=== PATIENT | female | born 1960 | race Caucasian/White ===

== ENCOUNTER 2021-12-30 20:51 | Inpatient (IN) | payer BC ==
[~2021-12-30] VITALS: Ht 170.2 cm; Wt 73.0 kg
[~2021-12-30 20:51] MED LIST: NOR10T PO
[2021-12-30] MEDS ORDERED: dilTIAZem HCL 50 MG/10 ML VIAL IV ONE (21:33)
[2021-12-30] MEDS ORDERED: dilTIAZem 125mg/125ml BAG KIT 125 ML IV ONE (21:45)
[2021-12-30] MEDS ORDERED: dilTIAZem 25 MG/5 ML VIAL IV ONE (21:45)
[2021-12-30 22:12] LABS: Basophils # (auto) 0 10 ^3/uL (0-0.2); Basophils % (auto) 0.4 % (0.0-2.0); Eosinophils # (auto) 0.1 10 ^3/uL (0-0.8); Eosinophils % (auto) 1.1 % (0.0-7.0); Hematocrit 48.9 % (36.0-46.0); Hemoglobin 16.4 g/dL (12.2-16.2); Lymphocytes # (auto) 2.7 10 ^3/uL (0.4-5.4); Lymphocytes % (auto) 30.3 % (10.0-50.0); Mean Corpuscular Hemoglobin 29.9 pg (28.0-32.0); Mean Corpuscular Hgb Conc. 33.5 g/dL (32.0-36.0); Mean Corpuscular Volume 89.4 fL (80.0-100.0); Monocytes # (auto) 0.8 10 ^3/uL (0-1.3); Monocytes % (auto) 9.4 % (0.0-12.0); Neutrophils # (auto) 5.2 10 ^3/uL (1.6-8.6); Neutrophils % (auto) 58.8 % (37.0-80.0); Nucleated Red Blood Cells % 0.1 %; Red Blood Cells 5.47 10^6/uL (4.0-5.20); Red Cell Distribution Width 12.8 % (11.8-14.3); White Blood Cell 8.9 10^3/uL (4.4-10.8)
[2021-12-30 22:37] LABS: Calcium 9.4 mg/dL (8.5-10.1); Potassium 3.4 mmol/L (3.5-5.1)
[2021-12-30 22:40] LABS: Bilirubin, Total 0.5 mg/dL (0.2-1.0); Total Protein 7.7 g/dL (6.4-8.2)
[2021-12-30 22:41] LABS: BUN/Creatinine Ratio 20.5
[2021-12-31] MEDS ORDERED: ENOXAPARIN SOD 80 MG/0.8ML SYRINGE SC ONE
[2021-12-31] MEDS ORDERED: MORPHINE SULFATE INJ 2 MG/ml SYRG IV PRN (01:00)
[2021-12-31] MEDS ORDERED: NITROGLYCERIN 0.4 MG SL TAB SL PRN (01:00)
[2021-12-31] MEDS ORDERED: ONDANSETRON HCL 4 MG/2 ML VIAL IV PRN (01:00)
[2021-12-31] MEDS: SODIUM CHLORIDE 0.9% 1,000 ML IV SCH ×2 (01:26→14:27)
[2021-12-31 02:16] LABS: Urine Bacteria NONE SEEN /hpf (None Seen); Urine Blood Negative /uL (Negative); Urine Mucus FEW (None Seen); Urine Specific Gravity 1.024 (1.001-1.035); Urine WBC 1 /hpf (0 - 5)
[2021-12-31] MEDS: POTASSIUM CHL 20MEQ/100ML 100 ML IV SCH ×2 (03:07→05:08)
[2021-12-31] MEDS: MORPHINE SULFATE INJ 2 MG/ml SYRG IV PRN ×2 (03:08→07:05)
[2021-12-31] MEDS ORDERED: ATORVASTATIN 20 MG TAB PO ONE (04:15)
[2021-12-31 05:59] LABS: Basophils # (auto) 0 10 ^3/uL (0-0.2); Basophils % (auto) 0.4 % (0.0-2.0); Eosinophils # (auto) 0.1 10 ^3/uL (0-0.8); Hematocrit 42.9 % (36.0-46.0); Hemoglobin 14.4 g/dL (12.2-16.2); Lymphocytes % (auto) 32.6 % (10.0-50.0); Mean Corpuscular Hemoglobin 29.9 pg (28.0-32.0); Mean Corpuscular Hgb Conc. 33.6 g/dL (32.0-36.0); Mean Corpuscular Volume 88.9 fL (80.0-100.0); Monocytes # (auto) 0.7 10 ^3/uL (0-1.3); Monocytes % (auto) 10.7 % (0.0-12.0); Neutrophils # (auto) 3.4 10 ^3/uL (1.6-8.6); Neutrophils % (auto) 55.3 % (37.0-80.0); Red Blood Cells 4.83 10^6/uL (4.0-5.20); Red Cell Distribution Width 12.9 % (11.8-14.3); White Blood Cell 6.2 10^3/uL (4.4-10.8)
[2021-12-31 06:19] LABS: Calcium 8.4 mg/dL (8.5-10.1); Magnesium 2.2 mg/dL (1.6-2.6); Potassium 4.2 mmol/L (3.5-5.1)
[2021-12-31 06:21] LABS: BUN/Creatinine Ratio 31.3
[2021-12-31] MEDS ORDERED: ENOXAPARIN SOD 40 MG/0.4 ML SYRINGE SC SCH (10:00)
[2021-12-31] MEDS ORDERED: ASPirin-EC 81 mg tab PO SCH (10:00)
[2021-12-31] MEDS: ENOXAPARIN SOD 80 MG/0.8ML SYRINGE SC SCH ×2 (10:34→22:00)
[2021-12-31] MEDS ORDERED: ATROPINE SULF 0.5 MG/5ML SYR IV PRN (13:00)
[2021-12-31] MEDS ORDERED: CLOPIDOGREL 300 MG TAB PO ONE (14:45)
[2021-12-31 16:21] VITALS: BP 145/66
[2021-12-31 16:22] VITALS: BP 145/66
[2021-12-31] MEDS ORDERED: KETOROLAC TROMETH 30 MG/ML 1ML VIAL IV ONE (19:00)
[2021-12-31] MEDS ORDERED: HYDROcodone-ACET 10/325MG TAB PO PRN (20:00)
[2021-12-31 22:01] VITALS: BP 140/56
[2021-12-31] MEDS: ATORVASTATIN 20 MG TAB PO SCH (22:06)
[2022-01-01] VITALS (18 sets, daily range): BP systolic 99–135; BP diastolic 40–78
[2022-01-01 05:17] LABS: Basophils # (auto) 0 10 ^3/uL (0-0.2); Basophils % (auto) 0.8 % (0.0-2.0); Eosinophils # (auto) 0.1 10 ^3/uL (0-0.8); Eosinophils % (auto) 1.5 % (0.0-7.0); Hematocrit 40.7 % (36.0-46.0); Hemoglobin 13.9 g/dL (12.2-16.2); Lymphocytes % (auto) 45.3 % (10.0-50.0); Mean Corpuscular Hemoglobin 30.1 pg (28.0-32.0); Mean Corpuscular Hgb Conc. 34.1 g/dL (32.0-36.0); Mean Corpuscular Volume 88.4 fL (80.0-100.0); Monocytes # (auto) 0.5 10 ^3/uL (0-1.3); Monocytes % (auto) 10.6 % (0.0-12.0); Neutrophils # (auto) 1.9 10 ^3/uL (1.6-8.6); Neutrophils % (auto) 41.8 % (37.0-80.0); Nucleated Red Blood Cells % 0.1 %; Red Blood Cells 4.61 10^6/uL (4.0-5.20); Red Cell Distribution Width 12.6 % (11.8-14.3); White Blood Cell 4.4 10^3/uL (4.4-10.8)
[2022-01-01 05:31] LABS: Albumin 3.1 g/dL (3.4-5.0); BUN/Creatinine Ratio 17.4; Potassium 4.1 mmol/L (3.5-5.1)
[2022-01-01 05:33] LABS: Bilirubin, Total 0.6 mg/dL (0.2-1.0); Total Protein 5.9 g/dL (6.4-8.2)
[2022-01-01 05:36] LABS: INR 1.04 (0.9-1.15); Partial Thromboplastin Time 27.1 sec (23.6-33.0)
[2022-01-01] MEDS: SODIUM CHLORIDE 0.9% 1,000 ML IV SCH (06:30)
[2022-01-01] MEDS ORDERED: CLOPIDOGREL BISULFATE 75 MG TAB PO SCH (10:00)
[2022-01-01] MEDS ORDERED: IOHEXOL 350 MG/ML 100ML IJ ONE (10:52)
[2022-01-01] MEDS ORDERED: HEPARIN SODIUM (PORCINE) 5000 UNITS/ML 1ML VIAL ONE (10:59)
[2022-01-01] MEDS ORDERED: VERAPAMIL 2.5MG/ML INJ 2ML VIAL IV ONE (10:59)
[2022-01-01] MEDS ORDERED: ANGIOMAX 250 MG VIAL IV ONE (10:59)
[2022-01-01] MEDS ORDERED: SODIUM CHL 0.9% 0 ML ONE (11:00)
[2022-01-01] MEDS ORDERED: fentaNYL CITRATE 100 MCG/2 ML VL ONE (11:00)
[2022-01-01] MEDS ORDERED: MIDAZOLAM HCL 2MG/2ML 2ml VIAL (1mg/ml) ONE ×2 (11:00→11:46)
[2022-01-01] MEDS ORDERED: LIDOCAINE 2%HCL (LOCAL ANESTH.) INJ 10ml MDV ONE ×2 (11:00→11:37)
[2022-01-01] MEDS ORDERED: VANCOMYCIN HCL 1000 MG VL ONE (11:33)
[2022-01-01] MEDS ORDERED: VANCOMYCIN 1GM/250ML 250 ML IV ONE (11:34)
[2022-01-01] MEDS ORDERED: diphenhdrAMINE HCL 50 MG/1 ML VL IV ONE (13:15)
[2022-01-01] MEDS ORDERED: diphenhdrAMINE HCL 50 MG/1 ML VL IV PRN (13:15)
[2022-01-01] MEDS ORDERED: diphenhdrAMINE HCL 50 MG/1 ML VL ONE (13:16)
[2022-01-01] MEDS ORDERED: HYDROcodone-ACET 5/325MG TAB PO PRN (13:30)
[2022-01-01] MEDS ORDERED: ACETAMINOPHEN 325 MG TAB PO PRN (13:30)
[2022-01-01] MEDS: ENOXAPARIN SOD 80 MG/0.8ML SYRINGE SC SCH ×2 (13:45→23:56)
[2022-01-01] MEDS: HYDROcodone-ACET 10/325MG TAB PO PRN ×2 (18:10→23:55)
[2022-01-01] MEDS: ATORVASTATIN 20 MG TAB PO SCH (23:56)
[2022-01-02] VITALS (18 sets, daily range): BP systolic 96–133; BP diastolic 44–93
[2022-01-02] MEDS: HYDROcodone-ACET 10/325MG TAB PO PRN ×2 (04:31→12:59)
[2022-01-02 05:35] LABS: Basophils # (auto) 0 10 ^3/uL (0-0.2); Basophils % (auto) 0.5 % (0.0-2.0); Eosinophils # (auto) 0.1 10 ^3/uL (0-0.8); Eosinophils % (auto) 1.7 % (0.0-7.0); Hemoglobin 15.2 g/dL (12.2-16.2); Lymphocytes # (auto) 1.6 10 ^3/uL (0.4-5.4); Lymphocytes % (auto) 27.6 % (10.0-50.0); Mean Corpuscular Hemoglobin 30.4 pg (28.0-32.0); Mean Corpuscular Hgb Conc. 34.6 g/dL (32.0-36.0); Mean Corpuscular Volume 87.9 fL (80.0-100.0); Monocytes # (auto) 0.4 10 ^3/uL (0-1.3); Monocytes % (auto) 7.5 % (0.0-12.0); Neutrophils # (auto) 3.6 10 ^3/uL (1.6-8.6); Neutrophils % (auto) 62.7 % (37.0-80.0); Red Blood Cells 5.01 10^6/uL (4.0-5.20); Red Cell Distribution Width 12.7 % (11.8-14.3); White Blood Cell 5.8 10^3/uL (4.4-10.8)
[2022-01-02 05:49] LABS: Potassium 3.3 mmol/L (3.5-5.1)
[2022-01-02 05:58] LABS: Albumin 3.1 g/dL (3.4-5.0); BUN/Creatinine Ratio 13.7; Bilirubin, Total 0.5 mg/dL (0.2-1.0); Calcium 7.9 mg/dL (8.5-10.1); Total Protein 6.4 g/dL (6.4-8.2)
[2022-01-02] MEDS ORDERED: POTASSIUM EFFERVESENT TAB 25 MEQ PO ONE (08:00)
[2022-01-02] MEDS ORDERED: MET25T PO (08:59)
[2022-01-02] MEDS ORDERED: AMIO200T33 PO (08:59)
[2022-01-02] MEDS ORDERED: CLOP75TA70 PO (08:59)
[2022-01-02] MEDS ORDERED: CLOPIDOGREL BISULFATE 75 MG TAB PO SCH (10:00)
[2022-01-02] MEDS ORDERED: METOPROLOL TARTRATE 25 MG TAB PO SCH (10:00)
[2022-01-02] MEDS ORDERED: ASPirin 81 mg TAB PO SCH (10:00)
[2022-01-02] MEDS ORDERED: AMIODARONE HCL 200 MG TAB PO SCH (10:00)
[2022-01-02] MEDS ORDERED: POTASSIUM CHL 20 Meq TABLET PO ONE (10:00)
== END 2022-01-02 18:30 | disposition home or self-care (01) | DRG 242 ==
LOC: ER 20:51 → INTOOBSV 12-31 01:04 → TELE 12-31 01:04 → DOU IN ICU 12-31 14:21 → OBSVTOIN 01-02 10:56
PROVIDERS: ADMIT Hospitalist; ATTEND Hospitalist
PROC: 0JH606Z Insertion of Pacemaker, Dual Chamber into Chest Subcutaneous Tissue and Fascia, Open Approach (ICD-10-PCS; principal; 2022-01-01)
PROC: 4A023N7 Measurement of Cardiac Sampling and Pressure, Left Heart, Percutaneous Approach (ICD-10-PCS; 2022-01-01)
PROC: 02H63JZ Insertion of Pacemaker Lead into Right Atrium, Percutaneous Approach (ICD-10-PCS; 2022-01-01)
PROC: B211YZZ Fluoroscopy of Multiple Coronary Arteries using Other Contrast (ICD-10-PCS; 2022-01-01)
PROC: B215YZZ Fluoroscopy of Left Heart using Other Contrast (ICD-10-PCS; 2022-01-01)
PROC: 02HK3JZ Insertion of Pacemaker Lead into Right Ventricle, Percutaneous Approach (ICD-10-PCS; 2022-01-01)
DX: I49.5 Sick sinus syndrome (principal); I21.4 Non-ST elevation (NSTEMI) myocardial infarction; E87.6 Hypokalemia; I48.91 Unspecified atrial fibrillation; I25.10 Atherosclerotic heart disease of native coronary artery without angina pectoris; Z20.822 Contact with and (suspected) exposure to COVID-19; Z87.442 Personal history of urinary calculi; Z90.710 Acquired absence of both cervix and uterus; Z88.6 Allergy status to analgesic agent
CPT/HCPCS: 33208; 36415; 71045; 80048; 80053; 80061; 81001; 83735; 83880; 84443; 84484; 85025; 85610; 85730; 87081; 93005; 93306; 93458; 96361; 96365; 96367; 96372; 96375; 96376; 99152; 99153; 99291; C1785; G0378; J2001; J2250; J3480

== ENCOUNTER 2022-01-06 13:07 | Emergency (ER) | payer BC ==
[~2022-01-06] VITALS: Ht 170.2 cm; Wt 65.8 kg
[~2022-01-06 13:07] MED LIST changes: +AMIO200T33 PO; +CLOP75TA70 PO; +MET25T PO
[2022-01-06] MEDS ORDERED: ONDANSETRON HCL 4 MG/2 ML VIAL IV ONE (13:45)
[2022-01-06 14:21] LABS: Basophils # (auto) 0 10 ^3/uL (0-0.2); Basophils % (auto) 0.6 % (0.0-2.0); Eosinophils # (auto) 0 10 ^3/uL (0-0.8); Eosinophils % (auto) 0.6 % (0.0-7.0); Hematocrit 48.2 % (36.0-46.0); Hemoglobin 16.4 g/dL (12.2-16.2); Lymphocytes # (auto) 1.6 10 ^3/uL (0.4-5.4); Lymphocytes % (auto) 22.1 % (10.0-50.0); Mean Corpuscular Hemoglobin 30.1 pg (28.0-32.0); Mean Corpuscular Hgb Conc. 33.9 g/dL (32.0-36.0); Mean Corpuscular Volume 88.6 fL (80.0-100.0); Monocytes # (auto) 0.7 10 ^3/uL (0-1.3); Monocytes % (auto) 9.1 % (0.0-12.0); Neutrophils # (auto) 4.9 10 ^3/uL (1.6-8.6); Neutrophils % (auto) 67.6 % (37.0-80.0); Nucleated Red Blood Cells % 0.2 %; Red Blood Cells 5.44 10^6/uL (4.0-5.20); Red Cell Distribution Width 12.9 % (11.8-14.3); White Blood Cell 7.3 10^3/uL (4.4-10.8)
[2022-01-06 14:37] LABS: INR 0.99 (0.9-1.15); Partial Thromboplastin Time 25.7 sec (24.6-33.4)
[2022-01-06 14:38] LABS: Albumin 3.9 g/dL (3.4-5.0); BUN/Creatinine Ratio 21.3; Magnesium 2.1 mg/dL (1.6-2.6); Potassium 4.1 mmol/L (3.5-5.1)
[2022-01-06 14:41] LABS: Bilirubin, Total 0.7 mg/dL (0.2-1.0); Total Protein 7.7 g/dL (6.4-8.2)
[2022-01-06 14:42] LABS: Urine Bacteria NONE SEEN /hpf (None Seen); Urine Blood Negative /uL (Negative); Urine Mucus FEW (None Seen); Urine Specific Gravity 1.025 (1.001-1.035); Urine WBC 18 /hpf (0 - 5)
[2022-01-06] MEDS ORDERED: IOHEXOL 350 MG/ML 100ML IJ ONE (16:19)
[2022-01-06 18:15] VITALS: BP 116/70
== END 2022-01-06 18:30 | disposition home or self-care (01) ==
LOC: ER 13:07
DX: R11.0 Nausea (principal); R53.1 Weakness; I10 Essential (primary) hypertension; Z90.49 Acquired absence of other specified parts of digestive tract; Z90.710 Acquired absence of both cervix and uterus; Z95.0 Presence of cardiac pacemaker; Z20.822 Contact with and (suspected) exposure to COVID-19
CPT/HCPCS: 36415; 71045; 71275; 80053; 81001; 82728; 83735; 84484; 85025; 85379; 85610; 85730; 86141; 87426; 93005; 96374; 99285; J2405; Q9967

== ENCOUNTER → 2022-03-11 | Outpatient (CLI) | payer BC | END | disposition home or self-care (01) | LOC: LAB 15:24 | PROVIDERS: ATTEND Student in an Organized Health Care Education/Training Program | DX: Z12.11 Encounter for screening for malignant neoplasm of colon (principal) | CPT/HCPCS: 82274 ==

== ENCOUNTER 2022-04-21 11:13 | Emergency (ER) | payer BC ==
[~2022-04-21] VITALS: Ht 170.2 cm; Wt 71.0 kg
[2022-04-21 15:04] LABS: Urine Bacteria FEW /hpf (None Seen); Urine Blood 3+ /uL (Negative); Urine Mucus FEW (None Seen); Urine Specific Gravity 1.022 (1.001-1.035); Urine WBC 7 /hpf (0 - 5)
[2022-04-21] MEDS ORDERED: CIPR500T4 PO (19:42)
[2022-04-21] MEDS ORDERED: PHEN1TAB38 PO (19:42)
[2022-04-21] MEDS ORDERED: METR500T14 PO (20:00)
[2022-04-21] MEDS ORDERED: CEPH-510 PO (20:07)
[2022-04-21 20:20] VITALS: BP 154/80
== END 2022-04-21 20:28 | disposition home or self-care (01) ==
LOC: ER 11:13
DX: N39.0 Urinary tract infection, site not specified (principal); N76.0 Acute vaginitis; I10 Essential (primary) hypertension; Z90.89 Acquired absence of other organs; Z90.710 Acquired absence of both cervix and uterus; Z95.0 Presence of cardiac pacemaker; Z88.1 Allergy status to other antibiotic agents; Z88.6 Allergy status to analgesic agent
CPT/HCPCS: 76856; 81001; 87086; 87210

== ENCOUNTER 2022-04-24 12:38 | Emergency (ER) | payer BC ==
[~2022-04-24] VITALS: Ht 170.2 cm; Wt 68.0 kg
[~2022-04-24 12:38] MED LIST changes: +CEPH-510 PO; +METR500T14 PO; +PHEN1TAB38 PO
[2022-04-24 13:33] LABS: Urine Bacteria NONE SEEN /hpf (None Seen); Urine Blood Negative /uL (Negative); Urine Specific Gravity 1.009 (1.001-1.035); Urine WBC 7 /hpf (0 - 5)
[2022-04-24] MEDS ORDERED: KETOROLAC TROMETH 60MG/2ML VIAL IM ONE (14:30)
[2022-04-24] MEDS ORDERED: cefTRIAXone SOD 1,000 MG VL IM ONE (14:30)
[2022-04-24] MEDS ORDERED: LIDOCAINE 1% HCL (LOCAL ANESTH.) INJ 20ML MDV IJ ONE (14:45)
[2022-04-24] MEDS ORDERED: BACDST PO (14:47)
[2022-04-24] MEDS ORDERED: PHEN200T16 PO (14:47)
[2022-04-24 14:58] VITALS: BP 145/78
== END 2022-04-24 15:03 | disposition home or self-care (01) ==
LOC: ER 12:38
DX: N39.0 Urinary tract infection, site not specified (principal); I10 Essential (primary) hypertension; Z90.49 Acquired absence of other specified parts of digestive tract; Z90.710 Acquired absence of both cervix and uterus; Z95.0 Presence of cardiac pacemaker; Z79.899 Other long term (current) drug therapy; Z79.01 Long term (current) use of anticoagulants; Z88.6 Allergy status to analgesic agent; Z88.1 Allergy status to other antibiotic agents; Z88.8 Allergy status to other drugs, medicaments and biological substances
CPT/HCPCS: 81001; 87086; 96372; 99284; J0696; J1885; J2001

== ENCOUNTER 2022-04-24 17:52 | Inpatient (IN) | payer BC ==
[~2022-04-24] VITALS: Ht 172.7 cm; Wt 74.2 kg
[~2022-04-24 17:52] MED LIST changes: +BACDST PO; +PHEN200T16 PO
[2022-04-24 19:58] LABS: Basophils # (auto) 0 10 ^3/uL (0-0.2); Basophils % (auto) 0.5 % (0.0-2.0); Eosinophils # (auto) 0.1 10 ^3/uL (0-0.8); Eosinophils % (auto) 0.7 % (0.0-7.0); Hematocrit 43.6 % (36.0-46.0); Hemoglobin 15.1 g/dL (12.2-16.2); Lymphocytes # (auto) 1.2 10 ^3/uL (0.4-5.4); Lymphocytes % (auto) 14.3 % (10.0-50.0); Mean Corpuscular Hemoglobin 30.9 pg (28.0-32.0); Mean Corpuscular Hgb Conc. 34.7 g/dL (32.0-36.0); Monocytes # (auto) 0.7 10 ^3/uL (0-1.3); Monocytes % (auto) 7.9 % (0.0-12.0); Neutrophils # (auto) 6.7 10 ^3/uL (1.6-8.6); Neutrophils % (auto) 76.6 % (37.0-80.0); Nucleated Red Blood Cells % 0.1 %; Red Cell Distribution Width 12.5 % (11.8-14.3); White Blood Cell 8.7 10^3/uL (4.4-10.8)
[2022-04-24 20:11] LABS: Albumin 3.7 g/dL (3.4-5.0); BUN/Creatinine Ratio 17.6; Calcium 8.4 mg/dL (8.5-10.1); Potassium 3.9 mmol/L (3.5-5.1)
[2022-04-24 20:13] LABS: Bilirubin, Total 0.4 mg/dL (0.2-1.0)
[2022-04-24] MEDS ORDERED: HYDROcodone-ACET 5/325MG TAB PO ONE (21:30)
[2022-04-24] MEDS ORDERED: IOHEXOL 350 MG/ML 100ML IJ ONE (21:46)
[2022-04-24 22:01] LABS: Urine Bacteria NONE SEEN /hpf (None Seen); Urine Blood 1+ /uL (Negative); Urine WBC 9 /hpf (0 - 5)
[2022-04-24 22:02] LABS: Urine Specific Gravity > 1.050 (1.001-1.035)
[2022-04-25] MEDS ORDERED: ACETAMINOPHEN 325 MG TAB PO PRN (00:45)
[2022-04-25] MEDS ORDERED: TAMSULOSIN HYDROCHLORIDE 0.4 MG CAP PO ONE (00:45)
[2022-04-25] MEDS ORDERED: cefTRIAXone 1GM/50ML D5W 50 ML IV ONE (00:45)
[2022-04-25] MEDS ORDERED: SODIUM CHLORIDE 0.9% 1,000 ML IV ONE (00:45)
[2022-04-25] MEDS ORDERED: fentaNYL CITRATE 100 MCG/2 ML VL IV ONE (00:45)
[2022-04-25] MEDS ORDERED: ONDANSETRON HCL 4 MG/2 ML VIAL IV ONE (00:45)
[2022-04-25] MEDS ORDERED: hydrALAZINE HCL 20 MG/ML VL IV PRN (01:00)
[2022-04-25] MEDS ORDERED: NITROGLYCERIN 0.4 MG SL TAB SL PRN (03:30)
[2022-04-25] MEDS ORDERED: MORPHINE SULFATE INJ 2 MG/ml SYRG IV PRN (03:30)
[2022-04-25] MEDS: HYDROcodone-ACET 5/325MG TAB PO PRN ×3 (03:47→14:48)
[2022-04-25] MEDS: SOD CHL 0.45% 1,000 ML IV SCH ×2 (05:39→21:07)
[2022-04-25 06:29] LABS: Albumin 3.2 g/dL (3.4-5.0); BUN/Creatinine Ratio 18.8; Basophils # (auto) 0 10 ^3/uL (0-0.2); Basophils % (auto) 0.4 % (0.0-2.0); Calcium 7.6 mg/dL (8.5-10.1); Eosinophils # (auto) 0.1 10 ^3/uL (0-0.8); Eosinophils % (auto) 1.7 % (0.0-7.0); Hematocrit 39.9 % (36.0-46.0); Lymphocytes # (auto) 1.4 10 ^3/uL (0.4-5.4); Lymphocytes % (auto) 23.4 % (10.0-50.0); Mean Corpuscular Hemoglobin 30.9 pg (28.0-32.0); Mean Corpuscular Volume 88.4 fL (80.0-100.0); Monocytes # (auto) 0.6 10 ^3/uL (0-1.3); Monocytes % (auto) 10.4 % (0.0-12.0); Neutrophils # (auto) 3.8 10 ^3/uL (1.6-8.6); Neutrophils % (auto) 64.1 % (37.0-80.0); Red Blood Cells 4.51 10^6/uL (4.0-5.20); Red Cell Distribution Width 12.3 % (11.8-14.3); White Blood Cell 5.9 10^3/uL (4.4-10.8)
[2022-04-25 06:31] LABS: Bilirubin, Total 0.4 mg/dL (0.2-1.0); Total Protein 6.2 g/dL (6.4-8.2)
[2022-04-25] MEDS: CLOPIDOGREL BISULFATE 75 MG TAB PO SCH (10:10)
[2022-04-25] MEDS: FAMOTIDINE (10MG/ML) 2ML VL IV SCH ×2 (10:10→21:16)
[2022-04-25] MEDS ORDERED: MANNITOL FTV 25% 12.5 GM/50 ML 50 ML IV ONE (14:15)
[2022-04-25 17:00] VITALS: BP 140/72
[2022-04-25] MEDS ORDERED: HYDROcodone-ACET 10/325MG TAB PO PRN (17:45)
[2022-04-25] MEDS: TAMSULOSIN HYDROCHLORIDE 0.4 MG CAP PO SCH (18:27)
[2022-04-25] MEDS: HYDROmorphone HCL 2 MG/ML VL/or syr IV PRN (19:54)
[2022-04-25 22:00] VITALS: BP 135/65
[2022-04-26 05:00] VITALS: BP 110/64
[2022-04-26 06:03] LABS: Basophils # (auto) 0 10 ^3/uL (0-0.2); Basophils % (auto) 0.5 % (0.0-2.0); Eosinophils # (auto) 0.1 10 ^3/uL (0-0.8); Eosinophils % (auto) 1.7 % (0.0-7.0); Hematocrit 39.4 % (36.0-46.0); Hemoglobin 13.6 g/dL (12.2-16.2); Lymphocytes # (auto) 1.2 10 ^3/uL (0.4-5.4); Lymphocytes % (auto) 18.2 % (10.0-50.0); Mean Corpuscular Hemoglobin 30.6 pg (28.0-32.0); Mean Corpuscular Hgb Conc. 34.4 g/dL (32.0-36.0); Mean Corpuscular Volume 88.9 fL (80.0-100.0); Monocytes # (auto) 0.8 10 ^3/uL (0-1.3); Monocytes % (auto) 11.3 % (0.0-12.0); Neutrophils # (auto) 4.5 10 ^3/uL (1.6-8.6); Neutrophils % (auto) 68.3 % (37.0-80.0); Nucleated Red Blood Cells % 0.1 %; Red Blood Cells 4.43 10^6/uL (4.0-5.20); Red Cell Distribution Width 12.4 % (11.8-14.3); White Blood Cell 6.7 10^3/uL (4.4-10.8)
[2022-04-26 06:25] LABS: BUN/Creatinine Ratio 13.6; Calcium 7.9 mg/dL (8.5-10.1); Potassium 3.9 mmol/L (3.5-5.1)
[2022-04-26] MEDS: HYDROmorphone HCL 2 MG/ML VL/or syr IV PRN ×3 (06:26→22:11)
[2022-04-26 06:42] LABS: Bilirubin, Total 0.6 mg/dL (0.2-1.0); Total Protein 6.1 g/dL (6.4-8.2)
[2022-04-26] MEDS: cefTRIAXone 1GM/50ML D5W 50 ML IV SCH (08:51)
[2022-04-26 09:00] VITALS: BP 112/55
[2022-04-26] MEDS: FAMOTIDINE (10MG/ML) 2ML VL IV SCH ×2 (09:38→21:59)
[2022-04-26] MEDS: CLOPIDOGREL BISULFATE 75 MG TAB PO SCH (09:38)
[2022-04-26] MEDS: DOCUSATE SOD 100 MG CAP PO PRN ×2 (09:39→22:10)
[2022-04-26 13:44] VITALS: BP 139/81
[2022-04-26 17:00] VITALS: BP 142/57
[2022-04-26] MEDS: SOD CHL 0.45% 1,000 ML IV SCH (17:00)
[2022-04-26] MEDS: TAMSULOSIN HYDROCHLORIDE 0.4 MG CAP PO SCH (17:33)
[2022-04-26 22:00] VITALS: BP 122/59
[2022-04-27 05:00] VITALS: BP 122/57
[2022-04-27] MEDS: HYDROmorphone HCL 2 MG/ML VL/or syr IV PRN ×3 (06:29→18:47)
[2022-04-27 07:05] LABS: Potassium 3.8 mmol/L (3.5-5.1)
[2022-04-27 07:13] LABS: BUN/Creatinine Ratio 17.1; Calcium 8.1 mg/dL (8.5-10.1); Uric Acid 4.1 mg/dL (2.6-6.0)
[2022-04-27] MEDS: cefTRIAXone 1GM/50ML D5W 50 ML IV SCH (08:56)
[2022-04-27 09:00] VITALS: BP 113/59
[2022-04-27] MEDS: CLOPIDOGREL BISULFATE 75 MG TAB PO SCH (10:04)
[2022-04-27] MEDS: FAMOTIDINE (10MG/ML) 2ML VL IV SCH ×2 (10:04→22:32)
[2022-04-27] MEDS: SOD CHL 0.45% 1,000 ML IV SCH (12:58)
[2022-04-27 13:09] VITALS: BP 149/75
[2022-04-27 16:30] VITALS: BP 154/79
[2022-04-27] MEDS: TAMSULOSIN HYDROCHLORIDE 0.4 MG CAP PO SCH (17:38)
[2022-04-27] MEDS: ONDANSETRON HCL 4 MG/2 ML VIAL IV PRN (18:46)
[2022-04-27 22:00] VITALS: BP 104/50
[2022-04-28] MEDS: HYDROmorphone HCL 2 MG/ML VL/or syr IV PRN ×3 (04:48→20:06)
[2022-04-28 05:00] VITALS: BP 113/67
[2022-04-28 05:36] LABS: BUN/Creatinine Ratio 11.5; Calcium 8.4 mg/dL (8.5-10.1); Potassium 3.8 mmol/L (3.5-5.1)
[2022-04-28 08:00] VITALS: BP 120/59
[2022-04-28] MEDS: FAMOTIDINE (10MG/ML) 2ML VL IV SCH ×2 (09:02→22:20)
[2022-04-28] MEDS: CLOPIDOGREL BISULFATE 75 MG TAB PO SCH (09:02)
[2022-04-28] MEDS: cefTRIAXone 1GM/50ML D5W 50 ML IV SCH (09:02)
[2022-04-28] MEDS: DOCUSATE SOD 100 MG CAP PO PRN ×2 (09:12→20:05)
[2022-04-28 12:00] VITALS: BP 147/64
[2022-04-28] MEDS ORDERED: LACTULOSE 20Gm/30ML SOLN PO ONE (12:15)
[2022-04-28 16:00] VITALS: BP 129/60
[2022-04-28] MEDS: SOD CHL 0.45% 1,000 ML IV SCH (18:12)
[2022-04-28] MEDS: TAMSULOSIN HYDROCHLORIDE 0.4 MG CAP PO SCH (18:12)
[2022-04-28 22:00] VITALS: BP 122/48
[2022-04-28] MEDS: METOPROLOL TARTRATE 25 MG TAB PO SCH (22:00)
[2022-04-29] MEDS: HYDROmorphone HCL 2 MG/ML VL/or syr IV PRN ×3 (00:05→20:50)
[2022-04-29] MEDS: SOD CHL 0.45% 1,000 ML IV SCH (04:45)
[2022-04-29 05:00] VITALS: BP 132/68
[2022-04-29] MEDS ORDERED: MANNITOL FTV 25% 12.5 GM/50 ML 50 ML IV ONE (08:00)
[2022-04-29 09:00] VITALS: BP 112/66
[2022-04-29] MEDS: cefTRIAXone 1GM/50ML D5W 50 ML IV SCH (09:58)
[2022-04-29] MEDS: METOPROLOL TARTRATE 25 MG TAB PO SCH (09:58)
[2022-04-29] MEDS: FAMOTIDINE (10MG/ML) 2ML VL IV SCH ×2 (09:58→23:11)
[2022-04-29] MEDS: CLOPIDOGREL BISULFATE 75 MG TAB PO SCH (10:00)
[2022-04-29] MEDS ORDERED: LACTULOSE 20Gm/30ML SOLN PO ONE (11:15)
[2022-04-29 13:00] VITALS: BP 127/66
[2022-04-29 17:00] VITALS: BP 143/77
[2022-04-29] MEDS: TAMSULOSIN HYDROCHLORIDE 0.4 MG CAP PO SCH (18:22)
[2022-04-29] MEDS: DOCUSATE SOD 100 MG CAP PO PRN (20:50)
[2022-04-29 22:00] VITALS: BP 129/58
[2022-04-30] MEDS: SOD CHL 0.45% 1,000 ML IV SCH ×2 (00:45→18:16)
[2022-04-30] MEDS: HYDROmorphone HCL 2 MG/ML VL/or syr IV PRN ×3 (01:03→15:24)
[2022-04-30 05:14] VITALS: BP 123/65
[2022-04-30 08:50] VITALS: BP 143/68
[2022-04-30] MEDS: FAMOTIDINE (10MG/ML) 2ML VL IV SCH ×2 (09:23→22:00)
[2022-04-30] MEDS: cefTRIAXone 1GM/50ML D5W 50 ML IV SCH (09:23)
[2022-04-30 09:38] LABS: INR 1.02 (0.9-1.15); Partial Thromboplastin Time 26.8 sec (24.6-33.4)
[2022-04-30] MEDS: CLOPIDOGREL BISULFATE 75 MG TAB PO SCH (09:38)
[2022-04-30 12:50] VITALS: BP 141/67
[2022-04-30 16:41] VITALS: BP 138/77
[2022-04-30] MEDS: TAMSULOSIN HYDROCHLORIDE 0.4 MG CAP PO SCH (18:10)
[2022-04-30 21:25] VITALS: BP 140/56
[2022-05-01 05:39] VITALS: BP 132/63
[2022-05-01] MEDS: HYDROmorphone HCL 2 MG/ML VL/or syr IV PRN ×5 (07:49→18:13)
[2022-05-01] MEDS: cefTRIAXone 1GM/50ML D5W 50 ML IV SCH (08:41)
[2022-05-01 09:28] VITALS: BP 130/79
[2022-05-01] MEDS: CLOPIDOGREL BISULFATE 75 MG TAB PO SCH (09:47)
[2022-05-01] MEDS: FAMOTIDINE (10MG/ML) 2ML VL IV SCH ×2 (09:47→21:17)
[2022-05-01] MEDS ORDERED: fentaNYL CITRATE 100 MCG/2 ML VL ONE (10:56)
[2022-05-01] MEDS ORDERED: ROCURONIUM 10MG/ML 10ML VIAL IV ONE (10:56)
[2022-05-01] MEDS ORDERED: MIDAZOLAM HCL 2MG/2ML 2ml VIAL (1mg/ml) ONE ×2 (10:56→12:20)
[2022-05-01] MEDS ORDERED: ONDANSETRON HCL 4 MG/2 ML VIAL ONE (11:00)
[2022-05-01] MEDS ORDERED: LIDOCAINE 2% (LOCAL ANESTH.) PF 5ml SDV ONE (11:00)
[2022-05-01] MEDS ORDERED: PROPOFOL 10 MG/ML 20 ML IV ONE (11:01)
[2022-05-01] MEDS ORDERED: IOHEXOL 300 MG/ML 100ML BOTTLE IJ ONE (11:01)
[2022-05-01] MEDS ORDERED: ONDANSETRON HCL 4 MG/2 ML VIAL IV PRN (11:15)
[2022-05-01] MEDS ORDERED: ceFAZolin 1GM VL ONE (11:24)
[2022-05-01] MEDS ORDERED: MANNITOL FTV 25% 12.5 GM/50 ML 50 ML IV ONE (11:45)
[2022-05-01] MEDS ORDERED: GLYCOPYRROLATE 0.2 MG/ML 1ML VIAL ONE ×3 (12:19→12:28)
[2022-05-01] MEDS ORDERED: NEOSTIGMINE 1 MG/ML INJ (10mg/10ML VIAL) ONE (12:29)
[2022-05-01] MEDS ORDERED: POLYETHYLENE GLYCOL 17 GM PWDR PO ONE (14:45)
[2022-05-01] MEDS ORDERED: BISACODYL 5 MG EC TAB PO ONE (14:45)
[2022-05-01] MEDS: ONDANSETRON HCL 4 MG/2 ML VIAL IV PRN ×2 (15:45→20:29)
[2022-05-01 17:00] VITALS: BP 139/65
[2022-05-01] MEDS: SOD CHL 0.45% 1,000 ML IV SCH (17:18)
[2022-05-01] MEDS: TAMSULOSIN HYDROCHLORIDE 0.4 MG CAP PO SCH (17:43)
[2022-05-01] MEDS ORDERED: OXYBUTYNIN CHL 5 MG TAB PO ONE (18:00)
[2022-05-01] MEDS ORDERED: BELLADONNA ALKAL/OPIUM (16.2/30MG) RECT SUPP PR ONE (18:00)
[2022-05-01] MEDS: HYDROcodone-ACET 5/325MG TAB PO PRN (19:34)
[2022-05-01 20:00] VITALS: BP 141/77
[2022-05-01 22:00] VITALS: BP 141/77
[2022-05-02] MEDS: HYDROmorphone HCL 2 MG/ML VL/or syr IV PRN ×4 (00:24→21:39)
[2022-05-02 05:00] VITALS: BP 136/69
[2022-05-02 06:25] LABS: Basophils # (auto) 0 10 ^3/uL (0-0.2); Basophils % (auto) 0.3 % (0.0-2.0); Eosinophils # (auto) 0 10 ^3/uL (0-0.8); Eosinophils % (auto) 0.1 % (0.0-7.0); Hematocrit 42.3 % (36.0-46.0); Hemoglobin 14.9 g/dL (12.2-16.2); Lymphocytes # (auto) 0.8 10 ^3/uL (0.4-5.4); Lymphocytes % (auto) 7.7 % (10.0-50.0); Mean Corpuscular Hemoglobin 30.8 pg (28.0-32.0); Mean Corpuscular Hgb Conc. 35.3 g/dL (32.0-36.0); Mean Corpuscular Volume 87.3 fL (80.0-100.0); Monocytes # (auto) 0.7 10 ^3/uL (0-1.3); Neutrophils # (auto) 9.4 10 ^3/uL (1.6-8.6); Neutrophils % (auto) 85.9 % (37.0-80.0); Nucleated Red Blood Cells % 0.1 %; Red Blood Cells 4.84 10^6/uL (4.0-5.20); Red Cell Distribution Width 12.1 % (11.8-14.3); White Blood Cell 10.9 10^3/uL (4.4-10.8)
[2022-05-02 07:03] LABS: BUN/Creatinine Ratio 15.2; Calcium 8.7 mg/dL (8.5-10.1)
[2022-05-02 08:57] VITALS: BP 138/77
[2022-05-02] MEDS: cefTRIAXone 1GM/50ML D5W 50 ML IV SCH (08:58)
[2022-05-02] MEDS: CLOPIDOGREL BISULFATE 75 MG TAB PO SCH (10:00)
[2022-05-02] MEDS: FAMOTIDINE (10MG/ML) 2ML VL IV SCH ×2 (10:04→21:38)
[2022-05-02] MEDS: HYDROcodone-ACET 5/325MG TAB PO PRN (10:04)
[2022-05-02] MEDS: DOCUSATE SOD 100 MG CAP PO PRN ×2 (10:04→21:39)
[2022-05-02] MEDS: SOD CHL 0.45% 1,000 ML IV SCH (12:48)
[2022-05-02 13:00] VITALS: BP 109/55
[2022-05-02 17:00] VITALS: BP 106/51
[2022-05-02] MEDS: TAMSULOSIN HYDROCHLORIDE 0.4 MG CAP PO SCH (18:08)
[2022-05-02 22:00] VITALS: BP 150/82
[2022-05-03] MEDS: HYDROcodone-ACET 5/325MG TAB PO PRN (00:59)
[2022-05-03] MEDS: HYDROmorphone HCL 2 MG/ML VL/or syr IV PRN (02:56)
[2022-05-03 05:00] VITALS: BP 111/64
[2022-05-03 09:00] VITALS: BP 119/56
[2022-05-03] MEDS: cefTRIAXone 1GM/50ML D5W 50 ML IV SCH (09:31)
[2022-05-03] MEDS: FAMOTIDINE (10MG/ML) 2ML VL IV SCH (09:31)
[2022-05-03] MEDS: SOD CHL 0.45% 1,000 ML IV SCH (09:32)
[2022-05-03] MEDS: CLOPIDOGREL BISULFATE 75 MG TAB PO SCH (09:32)
[2022-05-03 10:20] VITALS: BP 112/66
== END 2022-05-03 12:45 | disposition home or self-care (01) | DRG 661 ==
LOC: ER 17:52 → OVERFLOW 04-25 03:19 → EAST 04-25 16:21
PROVIDERS: ADMIT Nurse Practitioner Family; ATTEND Internal Medicine
PROC: 0T768DZ Dilation of Right Ureter with Intraluminal Device, Via Natural or Artificial Opening Endoscopic (ICD-10-PCS; principal; 2022-04-25)
PROC: BT1DZZZ Fluoroscopy of Right Kidney, Ureter and Bladder (ICD-10-PCS; 2022-04-25)
DX: N13.6 Pyonephrosis (principal); I48.91 Unspecified atrial fibrillation; I10 Essential (primary) hypertension; I49.5 Sick sinus syndrome; K59.00 Constipation, unspecified; N76.0 Acute vaginitis; F41.9 Anxiety disorder, unspecified; Z20.822 Contact with and (suspected) exposure to COVID-19; Z79.02 Long term (current) use of antithrombotics/antiplatelets; Z90.49 Acquired absence of other specified parts of digestive tract; Z90.710 Acquired absence of both cervix and uterus; Z88.6 Allergy status to analgesic agent
CPT/HCPCS: 36415; 74018; 74177; 76000; 76775; 80048; 80053; 81001; 83970; 84550; 85025; 85610; 85730; 86850; 86900; 86901; 87081; 87426; 96365; 96375; G0378; J0690; J0696; J2001; J2250; J2405; J2704; J3490